=== PATIENT | female | born 1985 | race African-American/Black ===

== ENCOUNTER 2020-01-20 10:34 | Emergency (ER) | payer OTHER ==
--- NOTE | 2020-01-20 11:08 | XRAY Report ---
PROCEDURE: Chest 1 View X-Ray INDICATIONS: Chest pain TECHNIQUE: One view of the chest was acquired. COMPARISON: None FINDINGS: Surgical changes and devices: None. Lungs and pleura: No pleural effusions or pneumothorax. Lungs are clear. Mediastinum: Mediastinal contours appear normal. Heart size is normal. Bones and chest wall: No suspicious bony lesions. Overlying soft tissues appear unremarkable. IMPRESSION: No acute cardiopulmonary pathology. Reviewed by: Sonny Mcbride MD on 01/20/2020 11:07 AM PDT Approved by: Sonny Mcbride MD on 01/20/2020 11:07 AM PDT Station ID: [id number]
--- NOTE | 2020-01-20 11:18 | ED Physician Documentation ---
PD HPI CHEST PAIN - Stated complaint Stated Complaint: CHEST PX - Chief complaint Chief Complaint: Cardiac - History obtained from History obtained from: Patient - History of Present Illness Timing - onset: How many days ago (4) Timing - onset during: Light activity Timing - duration: Days (4) Timing - details: Gradual onset, Still present, Intermittant Quality: Aching, Sharp, Pain Location: Left chest Radiation: Back, Left upper extremity. No: Neck Improved by: Rest Worsened by: Inspiration, Palpation, Other (cough) Associated symptoms: Shortness of air, Cough (mild cough regularly, but has had some increase in it the past week and some increased clear sputum.). No: Nausea, Feeling faint / dizzy, Palpitations Similar symptoms before: Has not had sx before (some history of asthma in the past; no regular meds use, but has ALbuterol MDI at home.) Recently seen: Not recently seen Review of Systems Constitutional: reports: Myalgias. denies: Fever, Chills Nose: denies: Rhinorrhea / runny nose, Congestion Throat: denies: Sore throat Cardiac: reports: Chest pain / pressure. denies: Palpitations, Pedal edema Respiratory: reports: Dyspnea, Cough GI: denies: Abdominal Pain, Nausea, Vomiting Musculoskeletal: denies: Extremity swelling PD PAST MEDICAL HISTORY - Past Medical History Cardiovascular: None Respiratory: Asthma Neuro: None Endocrine/Autoimmune: None - Past Surgical History Past Surgical History: No - Present Medications Home Medications: Ambulatory Orders Medication Instructions Recorded Confirmed Benzonatate [Tessalon Perle] 100 mg PO TID PRN #20 capsule 01/20/20 Doxycycline Monohydrate 100 mg PO BID #14 tablet 01/20/20 dexAMETHasone [Decadron] 4 mg PO DAILY #5 tablet 01/20/20 - Allergies Allergies/Adverse Reactions: Allergies Allergy/AdvReac Type Severity Reaction Status Date / Time No Known Drug Allergies Allergy Verified 01/20/20 10:45 - Living Situation Living Situation: reports: With spouse/s.o. Living Arrangement: reports: At home - Social History Does the pt smoke?: No Does the pt drink ETOH?: No Does the pt have substance abuse?: Yes Substance Use and Type: Marijuana PD ED PE NORMAL - Vitals Vital signs reviewed: Yes - General General: Alert and oriented X 3, No acute distress, Well developed/nourished - HEENT HEENT: Moist mucous membranes, Pharynx benign - Neck Neck: Supple, no meningeal sign, No adenopathy - Cardiac Cardiac: RRR, No murmur - Respiratory Respiratory: Clear bilaterally, Other (some local chestwall tenderness left sternal border/cartilage without redness/rash. ) - Abdomen Abdomen: Soft, Non tender - Back Back: No CVA TTP - Derm Derm: Normal color, Warm and dry - Extremities Extremities: Normal ROM s pain, No edema, No calf tenderness / cord - Neuro Neuro: Alert and oriented X 3, No motor deficit, Normal speech Results - Vitals Vitals: Vital Signs - 24 hr 01/20/20 01/20/20 01/20/20 10:42 11:15 11:30 Temperature 36.6 C Heart Rate 96 83 86 Respiratory 16 17 15 Rate Blood Pressure 146/94 H 124/73 O2 Saturation 100 100 100 01/20/20 01/20/20 12:00 12:37 Temperature 37.2 C Heart Rate 83 79 Respiratory 22 20 Rate Blood Pressure 131/94 H 129/80 O2 Saturation 99 100 Oxygen O2 Source Room air - EKG (time done) 10:47 Rate: Rate (enter#) (95) Rhythm: NSR, Other (some baseline artifact.) Reynolds: Normal Intervals: Normal PA QRS: Normal Ischemia: Normal ST segments. No: ST elevation c/w ischemia, ST depression - Labs Labs: Laboratory Tests 01/20/20 01/20/20 01/20/20 11:10 11:10 11:10 WBC 3.4 L RBC 3.93 L Hgb 13.1 Hct 37.0 MCV 94.1 MCH 33.3 H MCHC 35.4 RDW 11.6 L Plt Count 220 MPV 10.8 Neut # (Auto) 1.6 Lymph # (Auto) 1.6 [place] # (Auto) 0.2 Eos # (Auto) 0.0 Baso # (Auto) 0.0 Absolute Nucleated RBC 0.00 Nucleated RBC % 0.0 Sodium 138 Potassium 3.6 Chloride 104 Carbon Dioxide 25 Anion Gap 9.0 BUN 12 Creatinine 0.8 Estimated GFR (MDRD) 100 Glucose 107 H Calcium 9.4 Total Bilirubin 0.7 AST 15 ALT 18 Alkaline Phosphatase 33 L Troponin I High Sens < 2.3 L Total Protein 7.9 Albumin 4.6 Globulin 3.3 Albumin/Globulin Ratio 1.4 Lipase 35 - Rads (name of study) chest xray Radiology: Prelim report reviewed (no acute process), See rad report PD MEDICAL DECISION MAKING - ED course Complexity details: reviewed results, considered differential (has mild cough and sputum, sharp chest pain, worse with palpation and deep breathing. Normal chest xray. Not feverish. Has been at home regularly, so low risk COVID. ), d/w patient Departure - Departure Disposition: 01 Home, Self Care Clinical Impression: Bronchitis Chest pain Qualifiers: Chest pain type: precordial pain Qualified Code(s): R07.2 - Precordial pain Condition: Stable Record reviewed to determine appropriate education?: Yes Instructions: ED Bronchitis Asthmatic, ED Chest Pain Costochondritis Prescriptions: dexAMETHasone [Decadron] 4 mg PO DAILY #5 tablet Doxycycline Monohydrate 100 mg PO BID #14 tablet Benzonatate [Tessalon Perle] 100 mg PO TID PRN #20 capsule PRN Reason: Cough Comments: Use your albuterol inhaler 2 puffs 3-4 times a day for the next several days to week. Use some ibuprofen 400 to 600 mg 2-3 times a day. Add Decadron steroid for bronchial and chest wall inflammation daily for 5 more days. Benzonatate as needed for cough. I think this is likely some inflammation of the bronchials and chest wall. We can add doxycycline in case of infectious cause. Your chest x-ray is clear without any signs of pneumonia. Your EKG and blood test do not show any signs of heart attack or heart inflammation. Recheck if not improving well over the next several days and resolved within 5 to 7 days. Discharge Date/Time: 01/20/20 12:58
[2020-01-20 11:21] LABS: BASOPHILS % (AUTO) 0.3 %; EOSINOPHILS % (AUTO) 0.6 %; HGB - HEMOGLOBIN 13.1 g/dL (12.0-16.0); LYMPHOCYTES # (AUTO) 1.6 10^3/uL (1.5-3.5); LYMPHOCYTES % (AUTO) 45.6 %; MEAN CORPUSCULAR HEMOGLOBIN 33.3 pg (27.0-31.0); MEAN CORPUSCULAR HGB CONC 35.4 g/dL (32.0-36.0); MEAN CORPUSCULAR VOLUME 94.1 fL (81.0-99.0); MEAN PLATELET VOLUME 10.8 fL (7.9-10.8); MONOCYTES # (AUTO) 0.2 10^3/uL (0.0-1.0); NEUTROPHILS # (AUTO) 1.6 10^3/uL (1.5-6.6); NEUTROPHILS % (AUTO) 46.5 %; PLT - PLATELET COUNT 220 10^3/uL (130-450); RED BLOOD COUNT 3.93 10^6/uL (4.20-5.40); RED CELL DISTRIBUTION WIDTH 11.6 % (12.0-15.0); WHITE BLOOD COUNT 3.4 x10^3/uL (4.8-10.8)
[2020-01-20 11:33] LABS: ALBUMIN 4.6 g/dL (3.2-5.5); ALBUMIN/GLOBULIN RATIO 1.4 (1.0-2.2); BILIRUBIN,TOTAL 0.7 mg/dL (0.2-1.0); CALCIUM 9.4 mg/dL (8.5-10.3); CREATININE 0.8 mg/dL (0.4-1.0); TOTAL PROTEIN 7.9 g/dL (6.7-8.2)
[2020-01-20] MEDS ORDERED: IBUPROFEN 600 MG TABLET PO STA (11:50)
[2020-01-20] MEDS ORDERED: ACETAMINOPHEN 325 MG TABLET PO STA (12:29)
[2020-01-20] MEDS ORDERED: DOXYCYCLINE 100 MG TABLET PO STA (12:29)
[2020-01-20] MEDS ORDERED: DEXAMETHASONE 10 MG/ML VIAL IVP STA (12:29)
[2020-01-20 12:37] VITALS: BP 129/80
== END 2020-01-20 12:58 | disposition home or self-care (01) ==
LOC: ED 10:34
DX: J40 Bronchitis, not specified as acute or chronic (principal); R07.2 Precordial pain
CPT/HCPCS: 36415; 71045; 80053; 83690; 84484; 85025; 93005; 96374; 99284; A9270